=== PATIENT | male | born 1975 | race Caucasian/White ===

== ENCOUNTER → 2016-10-14 | Outpatient (CLI) | payer BC ==
--- NOTE | 2016-10-14 16:29 | US ---
EXAM DATE: 10/14/16 PATIENT'S AGE: 41 Patient: JUDITH COLÓN Facility: [place], [place] Site Site : [id number] Study: US Head Right [id number]/2017 1:33:12 PM Ordering Physician: CHIO AGRAWAL Final Report: Indication: Prominence at the right sternoclavicular junction. Technique: Multiple transverse and longitudinal sonographic images over the medial right clavicle. The images are mistakenly labeled "left". Comparison: None. Findings: No soft tissue mass, abnormal fluid collection, or other sonographic abnormality is seen in the soft tissues around the medial right clavicle. A couple of normal-sized right supraclavicular lymph nodes are incidentally noted. Impression: No sonographic abnormality identified about the medial right clavicle. If there is clinical concern for an osseous abnormality, consider plain radiographs or CT for further evaluation. Dictated by Wilton Ypa MD @ 10/14/2016 1:39:59 PM Dictated by: Wilton Yap MD @ 10/14/2016 13:42:33 (Electronic Signature) Report Signed by Proxy and Original Signed Document filed in the Medical Record. [facility]
== END ==
LOC: MW.US 12:37
PROVIDERS: ATTEND Student in an Organized Health Care Education/Training Program
DX: M79.9 Soft tissue disorder, unspecified (principal)
CPT/HCPCS: 76536-26-RT; 76536-RT

== ENCOUNTER → 2016-10-15 | Outpatient (CLI) | payer BC ==
--- NOTE | 2016-10-15 10:15 | CR ---
EXAMINATION: Right shoulder HISTORY: Pain COMPARISON: None TECHNIQUE: 3 views FINDINGS/IMPRESSION: There is no acute osseous abnormality, dislocation, or fracture. Mild subchondr al cystic change is noted within the distal clavicle. Joint spaces and bone mineralization otherwise appear preserved.
== END ==
LOC: MW.CHFP 08:45
PROVIDERS: ATTEND Student in an Organized Health Care Education/Training Program
DX: M25.511 Pain in right shoulder (principal)
CPT/HCPCS: 73030-26-RT; 73030-RT

== ENCOUNTER → 2016-10-22 | Outpatient (CLI) | payer BC ==
--- NOTE | 2016-10-23 08:49 | MR ---
EXAMINATION: MRI right shoulder HISTORY: Pain COMPARISON: None TECHNIQUE: Multiplanar and multisequence images obtained of the right shoulder without contrast. FINDINGS: There is type II acromion. Mild to moderate acromioclavicular osseous changes are noted wi th a trace periarticular edema. There is a tiny partial-thickness tear of the supraspinatus tendon a t the footplate. Otherwise mildly increased signal is noted within the supraspinatus tendon and less so within the infraspinatus tendon. The long head biceps tendon is present within the bicipital rochelle ove. The subscapularis tendon appears intact. The teres minor tendon appears intact. No significant joint effusion. The inferior glenohumeral ligament appears grossly intact. Mild articular cartilage thinning is noted within the glenohumeral joint. There is a trace bone marrow edema underlying the r otator cuff insertion. IMPRESSION: 1. Tiny partial-thickness tear of the supraspinatus tendon at the footplate. 2. Mild distal supraspinatus and infraspinatus tendinopathy. 3. Mild acromioclavicular and glenohumeral osteoarthritic changes.
== END ==
LOC: MW.MRI 14:51
PROVIDERS: ATTEND Student in an Organized Health Care Education/Training Program
DX: S43.81XA Sprain of other specified parts of right shoulder girdle, initial encounter (principal); M65.812 Other synovitis and tenosynovitis, left shoulder
CPT/HCPCS: 73221-26-RT; 73221-RT

== ENCOUNTER 2020-08-03 01:52 | Emergency (ER) | payer BC, OTHER ==
[2020-08-03] MEDS ORDERED: Lidocaine 1% with EPINEPHrine 1:100,000 20 ML MDV INJECT ONE (02:05)
[2020-08-03] MEDS ORDERED: Diphtheria,Pertussis(Acell),Tetanus Vaccine 0.5 ML SDV IM ONE (02:29)
[2020-08-03 02:38] VITALS: BP 137/97; PULSE 107
--- NOTE | 2020-08-03 02:57 | CT ---
INDICATION: Head injury, alcohol intoxication TECHNIQUE: CT Head without i.v. contrast. COMPARISON: None FINDINGS: CSF space: The ventricles are normal for age. Brain: No evidence of mass, acute infarction or hemorrhage is seen. No mass-effect or midline shift is seen. The brain parenchyma is otherwise normal in appearance with preservation of the solomon-white matter junction. Calvarium: The visualized paranasal sinuses are well aerated. The mastoid air cells are clear. The visualized orbits are grossly unremarkable. The calvarium is unremarkable in appearance with no fractures identified. IMPRESSION: 1. No evidence of acute infarction, intracranial hemorrhage, or mass-effect seen. Please note that all CT scans at this facility use dose modulation, iterative reconstruction, and/or weight-based dosing when appropriate to reduce radiation dose to as low as reasonably achievable. Dictated by: Tex Diaz MD @ 08/03/2020 02:56:44 (Electronically Signed)
[2020-08-03] MEDS ORDERED: Diphtheria,Pertussis(Acell),Tetanus Vaccine 0.5 ML Syringe ONE (03:01)
--- NOTE | 2020-08-03 03:08 | EDM.PDOC ---
ED HPI GENERAL MEDICAL PROBLEM - General Chief Complaint: Trauma Stated Complaint: HEAD WOUND Time Seen by Provider: 08/03/20 02:29 - History of Present Illness INITIAL COMMENTS - FREE TEXT/NARRATIVE: CHIEF COMPLAINT(S): Scalp wound HISTORY OF PRESENT ILLNESS: This is a 45-year-old man who presents to the emergency department as a trauma alert via walk-in for bleeding scalp wound. Per the who is present he head butted a glass window. She stated that he started to bleed so she brought him to the emergency department. She states that he had a significant amount to drink that tonight. She states that when he did his head he did not have any loss of consciousness. Patient states that he is not having any pain and that he is not any anticoagulation. He denies any neck pain, chest pain, shortness of breath, abdominal pain, nausea or vomiting. He denies any numbness, tingling, or weakness. REVIEW OF SYSTEMS: Constitutional: Denies fever, chills. Eyes: Denies eye pain Ears, Nose, Mouth, & Throat: Denies earache Cardiovascular: Denies chest pain Respiratory: Denies shortness of breath Gastrointestinal: Denies Nausea, vomiting, diarrhea, hematochezia. Genitourinary: Denies hematuria Skin: Positive for scalp laceration and bleeding Neurological: Denies blurred vision, numbness, tingling, or weakness Psychiatric: Denies depression PAST MEDICAL HISTORY: As per history of present illness and as reviewed below otherwise noncontributory. SURGICAL HISTORY: As per history of present illness and as reviewed below otherwise noncontributory. SOCIAL HISTORY: As per history of present illness and as reviewed below otherwise noncontributory. FAMILY HISTORY: As per history of present illness and as reviewed below otherwise noncontributory. EXAMINATION OF ORGAN SYSTEMS/BODY AREAS: VITALS: Blood pressure was 137/97, heart rate 107, respiratory rate 18 with an oxygen saturation 94% on room air. Temperature 36.8. GENERAL: Intoxicated man who is actively bleeding from a scalp wound.. HEAD, EARS, EYES, NOSE THROAT: Patient's head is normocephalic and there is a 1.5 cm scalp laceration with arterial bleeding. PERRL. EOM are intact. There was no facial bone tenderness. Ears were clear, no hemotympanum. Oropharynx is clear. No missing or chipped teeth. Neck was supple and nontender. RESPIRATORY: No tachypnea. Equal breath sounds are heard bilaterally. Lungs clear to ausculatation. CARDIOVASCULAR: Tachycardic but regular. Heart sounds were normal. There is no S3, S4, murmur, rub. There is no chest wall tenderness. No crepitus. Radial and dorsalis pedis pulses were palpable and equal bilaterally. ABDOMEN: The abdomen was soft, nondistended, and nontender to palpation. There was no guarding or rebound tenderness. Bowel sounds were present throughout the abdomen and normal. Pelvis was stable and not tender to rock. SPINE: There is no cervical, thoracic or lumbar spine tenderness. EXTREMITIES: Extremity examination revealed no deformity, localized swelling, contusions, or other abnormality. Patient is moving all 4 extremities equally. Distal pulses palpable in bilterally. NEUROLOGICAL: Alert and oriented. On neurological examination Mariusz Coma Scale was 15. Facies were symmetrical. Strength was good in all extremities. SKIN: Appropriately warm to touch. No rashes, or pallor. MEDICAL DECISION MAKING AND COURSE IN THE ED WITH INTERPRETATION/REVIEW OF DIAGNOSTIC STUDIES: This is a 45-year-old intoxicated gentleman who presents to emergency department as a trauma alert immediately upon entering the resuscitation bay ATLS protocol was followed, the patient is disrobed, and placed on continuous cardiac monitoring as well as pulse oximetry. Patient tells me their name displaying a patent airway, breath sounds are equal bilaterally, and patient has palpable pulses in all 4 extremities. At this time there was significant bleeding from the right temporal scalp laceration with some arterial bleeding. We did apply direct pressure for approximately 15 minutes to this area to achieve hemostasis. However hemostasis was not achieved. Therefore we used Surgicel to attempt to achieve hemostasis again with direct pressure for approximately 10 to 15 minutes. Again this did not achieve hemostasis. Therefore we used soaked TXA gauze with direct pressure. Again this did not work. Therefore under direct visualization we were able to achieve hemostasis by placing direct pressure approximately to be superficial arterial supply to this wound. I did place a [id number] stitch with absorbable sutures which did achieve hemostasis. We did clean out the wound and did a suture repair. Given that the patient is intoxicated will obtain a CT head without contrast. Patient's tetanus is not up-to-date therefore we will provide the patient with a tetanus shot. Not believe any further work-up is indicated Laceration Repair Note Repair of the 1.5 cm right temporal scalp wound was done by myself. Wound was irrigated well with saline. Local anesthesia with lidocaine with epinephrine was performed. No foreign bodies were noted. The wound was repaired with 2 3-0 absorbable sutures to achieve hemostasis and 4 x4-0 directed nylon sutures. Wound edges approximated well. Bacitracin ointment and a sterile dressing were applied. The radiological images were viewed by myself along with reading the report from the radiologist. CT head without contrast does not reveal any acute intracranial abnormality. At this time we did reevaluate the patient's wound and there was no active bleeding. Therefore I believe that hemostasis has been achieved. I did discuss with patient's who is at bedside that he would be stable for discharge. I discussed that he needs to have the stitches removed in approximately 5 to 7 days. I discussed that there was arterial bleeding and that he should keep the dressing on until tomorrow. I discussed that if there was any worsening of bleeding she needed to bring him back to the emergency department immediately. She was amenable to discharge and the patient was amenable to discharge at this time. DISPOSITION: The patient was discharged home in stable condition. The patient will follow up with PCP in 5 to 7 days for suture removal PROCEDURES: Suture repair FINAL IMPRESSION(S)/DIAGNOSES: 1. Acute right bleeding scalp wound status post [id number] stitching 4 hemostasis 2. Acute right scalp laceration status post suture repair 3. Acute alcohol intoxication Ryan Helms M.D. right temporal Pain Score (Numeric/FACES): 4 - Related Data Allergies Allergy/AdvReac Type Severity Reaction Status Date / Time No Known Allergies Allergy Verified 08/03/20 02:25 Home Meds: Home Meds Cetirizine HCl [Zyrtec] 10 mg PO DAILY 05/09/14 [History] Famotidine [Pepcid AC] 10 mg PO DAILY 05/09/14 [History] Past Medical History HEENT History: Reports: None Cardiovascular History: Reports: None Respiratory History: Reports: None Gastrointestinal History: Reports: None, GERD Genitourinary History: Reports: None Musculoskeletal History: Reports: None Neurological History: Reports: None Endocrine/Metabolic History: Reports: None Insulin Pump Model and Telemetry Monitor: None Hematologic History: Reports: None Immunologic History: Reports: None Oncologic (Cancer) History: Reports: None Dermatologic History: Reports: None - Infectious Disease History Infectious Disease History: Reports: None - Past Surgical History Head Surgeries/Procedures: Reports: None Social & Family History - Recreational Drug Use Recreational Drug Use: No Review of Systems - Review of Systems Review Of Systems: See Below ED EXAM, GENERAL - Physical Exam Exam: See Below Course - Vital Signs Last Recorded V/S: Last Vital Signs Temp 36.8 C 08/03/20 01:55 Pulse 107 H 08/03/20 01:55 Resp 18 08/03/20 01:55 BP 137/97 H 08/03/20 01:55 Pulse Ox 94 L 08/03/20 01:55 - Orders/Labs/Meds Meds: Medications Discontinued Medications Generic Name Dose Route Start Last Admin Trade Name Freq PRN Reason Stop Dose Admin Diphtheria/Tetanus/Acell Pertussis 0.5 ml 08/03/20 02:29 08/03/20 03:05 Boostrix IM 08/03/20 02:30 0.5 ml .ONCE ONE Administration Diphtheria/Tetanus/Acell Pertussis Confirm 08/03/20 03:01 08/03/20 03:41 Boostrix Administered 08/03/20 03:02 Not Given Dose 0.5 ml .ROUTE .STK-MED ONE Lidocaine/Epinephrine 20 ml 08/03/20 02:05 08/03/20 03:44 Xylocaine 1% With Epinephrine 1:100,000 INJECT 08/03/20 02:06 20 ml ONETIME ONE Administration Tranexamic Acid Confirm 08/03/20 02:07 08/03/20 03:41 Cyklokapron Administered 08/03/20 02:08 Not Given Dose 1,000 mg .ROUTE .STK-MED ONE Tranexamic Acid 1,000 mg 08/03/20 02:37 08/03/20 03:06 Cyklokapron TOP 08/03/20 02:47 1,000 mg ONETIME ONE Administration Departure - Departure Time of Disposition: 03:05 Disposition: Home, Self-Care 01 Condition: Fair Clinical Impression: Scalp laceration Qualifiers: Encounter type: initial encounter Qualified Code(s): S01.01XA - Laceration without foreign body of scalp, initial encounter - Discharge Information *PRESCRIPTION DRUG MONITORING PROGRAM REVIEWED*: No *COPY OF PRESCRIPTION DRUG MONITORING REPORT IN PATIENT CHEMO: No Instructions: Laceration Care, Adult, [id number] Referrals: PCP,None [Primary Care Provider] - Forms: ED Department Discharge Additional Instructions: You were evaluated today on an emergent basis. You had a cut to your right scalp with some arterial bleeding which has stopped. We did place 4 stitches which need to be removed within 5 to 7 days. If you have any continued bleeding please return to the emergency department as arterial bleeding of the scalp can be significant and life-threatening. Please also return if he started to experience any pus drainage or surrounding redness of the laceration. Please follow-up with your primary care physician as needed [facility] [address] [place], [place] [id number] [facility] [address] [place] [id number] The patient is informed of any results of their evaluation and diagnostic workup and all questions are answered. They are given discharge instructions and return precautions. The patient is stable for discharge. The patient states they understand and agree with the plan and that they will return if their symptoms get worse or if they have any new concerns. The following information is given to patients seen in the emergency department who are being discharged to home. This information is to outline your options for follow-up care. We provide all patients seen in our emergency department with a follow-up referral. The need for follow-up, as well as the timing and circumstances, are variable depending upon the specifics of your emergency department visit. If you don't have a primary care physician on staff, we will provide you with a referral. We always advise you to contact your personal physician following an emergency department visit to inform them of the circumstance of the visit and for follow-up with them and/or the need for any referrals to a consulting specialist. The emergency department will also refer you to a specialist when appropriate. This referral assures that you have the opportunity for follow-up care with a specialist. All of these measure are taken in an effort to provide you with optimal care, which includes your follow-up. Under all circumstances we always encourage you to contact your private physician who remains a resource for coordinating your care. When calling for follow-up care, please make the office aware that this follow-up is from your recent emergency room visit. If for any reason you are refused follow-up, please contact the [facility] Emergency Department at and asked to speak to the emergency department charge nurse. Sepsis Event Note (ED) - Evaluation Sepsis Screening Result: No Definite Risk - Focused Exam Vital Signs: Vital Signs Temp Pulse Resp BP Pulse Ox 08/03/20 01:55 36.8 C 107 H 18 137/97 H 94 L
== END 2020-08-03 03:15 | disposition home or self-care (01) ==
LOC: MW.ED 01:52
DX: S01.01XA Laceration without foreign body of scalp, initial encounter (principal); F10.129 Alcohol abuse with intoxication, unspecified; K21.9 Gastro-esophageal reflux disease without esophagitis; Z79.899 Other long term (current) drug therapy; Z23 Encounter for immunization; W25.XXXA Contact with sharp glass, initial encounter
CPT/HCPCS: 12001; 70450; 70450-26; 90471; 90715; 99283; 99284-25

== ENCOUNTER 2022-12-01 19:45 | Emergency (ER) | payer BC ==
[2022-12-01] MEDS ORDERED: Cephalexin 500 MG Cap PO ONE ×2 (21:25→21:26)
[2022-12-01 21:38] VITALS: PULSE 101
[2022-12-02 04:07] VITALS: BP 154/80
== END 2022-12-01 21:59 | disposition home or self-care (01) ==
LOC: MW.ED 19:45
DX: L03.113 Cellulitis of right upper limb (principal); K21.9 Gastro-esophageal reflux disease without esophagitis; Z79.899 Other long term (current) drug therapy
CPT/HCPCS: 99283; A9270

== ENCOUNTER 2023-04-22 01:57 | Emergency (ER) | payer OTHER, BC ==
[2023-04-22 02:16] VITALS: BP 159/85; PULSE 115
== END 2023-04-22 02:13 ==
LOC: MW.ED 01:57
DX: Z02.89 Encounter for other administrative examinations (principal); F10.920 Alcohol use, unspecified with intoxication, uncomplicated; K21.9 Gastro-esophageal reflux disease without esophagitis; Z79.899 Other long term (current) drug therapy; V89.2XXA Person injured in unspecified motor-vehicle accident, traffic, initial encounter; Y92.410 Unspecified street and highway as the place of occurrence of the external cause
CPT/HCPCS: 99282; 99284